=== PATIENT | female | born 1955 | race Caucasian/White ===

== ENCOUNTER → 2017-10-08 | Day surgery (SDC) | payer OTHER ==
[~2017-10-08] VITALS: Ht 172.7 cm; Wt 111.7 kg
[~2017-10-08] MED LIST: ACETAMINOPHEN 1000 MG/100 ML 100 ML IV ONE; BUPIVACAINE HCL PF 0.5% 30 ML VIAL ONE; BUPR150CR PO; CHLORHEXIDINE GLUCONATE 2 % 1 PACK (2 CLOTHS) TOPICAL PRN; CHOL1CAP34 PO; CYCL5TAB PO; DEXAMETHASONE SOD PHOS 4 MG/ML VIAL IV ONE; DO NOT ADM ANY ANTICOAGULANT DRUGS PRN; DULO1CAP2 PO; GLIP5TAB8 PO; GLYCOPYRROLATE 1 MG/5 ML SYRINGE IV PUSH ONE; IBUP1TAB7 PO; LACTATED RINGER'S 1000 ML INJ 500 ML IV SCH; LACTATED RINGER'S 1000 ML IV PRN; LEVO75TA3 PO; LIDOCAINE HCL 1% PF 5 ML SYRINGE OTHER ONE; LIDOCAINE HCL 2% 50 ML VIAL ONE; LISI30TA4 PO; LORA1TAB12 PO; METF500T PO; METOPROLOL TARTRATE 25 MG TAB PO PRN; MIDAZOLAM HCL 2 MG/2 ML VIAL ONE; NEOSTIGMINE 5 MG/5 ML SYRINGE IV PUSH ONE; OMEP20TA93 PO; ONDANSETRON HCL 4 MG/2 ML VIAL IV ONE; POVIDONE IODINE 5% (ANTISEPSIS KIT) 4 APPLICATIONS EACH NARE PRN; PRAV80TA2 PO; PROM25TA10 PO; PROPOFOL 200 MG/20 ML AMP IV ONE; ROCURONIUM INJ 50 MG/5 ML SYRINGE IV PUSH ONE; SODIUM CHLORID 0.9% 500 ML IV PRN; TYLETAB36 PO; ceFAZolin 2 GM PREMIX 50 ML IV SCH
--- NOTE | 2017-10-08 13:45 | PD.OP ---
Operative Report Preoperative Diagnosis: (1) Trigger finger, right ring finger (2) Trigger finger, right middle finger Postoperative Diagnosis: (1) Trigger finger, right ring finger (2) Trigger finger, right middle finger Procedure: trigger release right middle and right ring fingers Anesthesia: LMA Surgeon: Von Jerome [employer] Director(s): alejandra Operation and Findings: trigger fingers right middle and ring fingers Von Jerome MD Oct 08, 2017 13:45
[2017-10-08 14:58] VITALS: BP 126/67; PULSE 74; RESP 18; TEMP 98.2; O2SAT 97
--- NOTE | 2017-10-08 15:23 | MP ---
cc: Von Jerome MD DATE OF OPERATION: 10/08/2017 PREOPERATIVE DIAGNOSIS: Trigger finger right middle finger, trigger finger right ring finger. POSTOPERATIVE DIAGNOSIS: Trigger finger right middle finger, trigger finger right ring finger. PROCEDURE: Open trigger release right middle and right ring finger. SURGEON: Dr. Jerome ANESTHESIA: LMA ESTIMATED BLOOD LOSS: Minimal TOURNIQUET TIME: 21 minutes at 250 mmHg CONDITION: To post-anesthesia care unit stable INDICATION: The patient is a 61-year-old female who presented with complaints of pain and triggering involving the right middle and ring fingers of several weeks to months duration. She also complained of associated locking episodes. She had difficulty grabbing things with the right hand. She had multiple trigger fingers in the past for which she had trigger finger releases. She was consented for open right middle and ring finger trigger releases. The patient was explained risks and benefits of the procedure. OPERATION: The patient was brought to the operating room and the right upper extremity was thoroughly prepped and draped. The incision site was marked in an oblique fashion to the proximal aspect of the A-1 kirill region of the middle finger measuring about 2 cm. Another incision site was marked in a longitudinal fashion over the A-1 kirill region of the ring finger. After limb exsanguination the tourniquet was inflated to 250 mmHg. Attention was initially directed to the middle finger. Incision was made over the proposed incision site. The incision was deepened to soft tissue. Incision was carried out exposing the A-1 kirill. The A-1 kirill was found to be thickened. The A-1 kirill was released in a proximal to distal direction. Proximally the palmar kirill was released. There was evidence of hypertrophied around the flexor tendon which was debrided. The tendons were delivered out of the wound and finger was put through range of motion, no evidence of were noted. After achieving complete release the palmar skin was approximated using 5-0 Nylon in horizontal mattress interrupted fashion. Attention was then directed to the right ring finger. Incision was made in a longitudinal fashion. Soft tissue dissection was carried out exposing the A-1 kirill. There was evidence of thickening of the A-1 kirill. The A-1 kirill was released in proximal to distal fashion. Proximally the palmar kirill was released. The tendons were delivered out. The finger was put through a range of motion, no were noted. After achieving complete release the palmar skin approximated using 5-0 Nylon in horizontal mattress interrupted fashion. Xeroform, Bacitracin dressing was applied. Bulky hand dressing was applied which was held in place by Sof-Rol and bias hand wrap. The tourniquet was deflated. Total tourniquet time was 21 minutes. The patient had good distal circulation after release of the tourniquet. The patient was sent to the recovery room in stable condition. She will followup with me in 2-3 days time for dressing change. Von Jerome MD SE/SHANTELL/deborah , 01:48 PM , 02:42 PM
== END | disposition home or self-care (01) ==
LOC: HSDC 10:10
PROVIDERS: ATTEND Surgery Surgery of the Hand
DX: M65.341 Trigger finger, right ring finger (principal); M65.331 Trigger finger, right middle finger
CPT/HCPCS: 01810; 26055; J0131; J1100; J2250; J2405; J2710; J3010

== ENCOUNTER 2018-05-16 08:09 | Observation (INO) ==
--- NOTE | 2018-05-15 19:23 | MH ---
cc: Ángel Cullen Rohit K MD Mitchell-Samon, Levonne DATE OF ADMISSION: 05/16/2018 DATE OF ADMISSION 05/16/2018 ADMITTING DIAGNOSIS: Cervical spinal stenosis. HISTORY OF PRESENT ILLNESS: This is a 62-year-old female who presented to us for evaluation of neck pain that she has had since she was in her late 20s. She states she moved to [place] from [place] and established with a primary care physician. Her history had mentioned that she had neck pain and she was referred to pain management. Pain management started a workup and recommended that she see Neurosurgery and after her scans were done and called her with the results they wanted to do injections in her neck. The patient wanted to first know about her studies and her options and decided to follow through with neurosurgical evaluation. She states she has a history of carpal tunnel release and has had multiple trigger finger surgeries also. She states she has weakness in her hands and drops stuff a lot. She complains of paresthesias in the dorsal aspect of her hands intermittently. She has difficulty with fine motor coordination. She feels off balance with walking. She denies any radiculopathy in the upper extremities. PAST MEDICAL HISTORY: Significant for anxiety and depression, thrombocytosis, diabetes, hypertension, posttraumatic stress disorder, hypothyroidism, hypertension, hyperlipidemia, COPD. ALLERGIES: SHE STATES TRAMADOL CAUSES NAUSEA AND VOMITING, PREGABALIN CAUSES HER FEET TO SWELL AND BLURRED VISION, NSAIDS CAUSES NAUSEA AND VOMITING. CURRENT MEDICATIONS: 1. Bupropion SR 150 mg, 12-hour sustained release 1 tablet p.o. b.i.d. 2. Duloxetine 30 mg 1 tablet p.o. daily. 3. Vitamin D. 4. Glipizide 5 mg b.i.d. 5. Ibuprofen was placed on hold prior to surgical intervention. 6. Levothyroxine 75 mcg daily. 7. Lisinopril 40 mg. 8. Lorazepam t.i.d. 9. Metformin 500 mg b.i.d. 10. Multivitamin. 11. Omeprazole 20 mg delayed release. 12. Pravastatin 80 mg. 13. Promethazine 25 mg every 4 hours. 14. Tizanidine 4 mg. 15. Ventolin inhaler. 16. Vitamin D once a week. FAMILY HISTORY: Significant for atrial fibrillation, hyperlipidemia, neuropathy, malignant melanoma, stroke, fibromyalgia, schizophrenia, alcoholism, anxiety disorder, emphysema, colon cancer. SOCIAL HISTORY: She does not smoke and has not smoked. REVIEW OF SYSTEMS: CONSTITUTIONAL: She denies any fever or chills. EARS NOSE AND THROAT: No pharyngitis or exudates or bleeding from her nose. CARDIOVASCULAR: Denies any chest pain or palpitations. RESPIRATORY: No cough or shortness of breath. GASTROINTESTINAL: No nausea, vomiting, or abdominal pain. GENITOURINARY: No dysuria or hematuria. MUSCULOSKELETAL: Positive for neck pain. INTEGUMENTARY: No rashes or pruritus. NEUROLOGIC: No difficulty with speech or memory. ENDOCRINE: No polyuria or polydipsia. HEMATOLOGIC: No bruising or bleeding tendencies. PHYSICAL EXAMINATION: HEENT: Head is normocephalic, atraumatic. NECK: Supple. No carotid bruits on auscultation. LUNGS: Clear to auscultation bilaterally. HEART: Regular rate and rhythm. Normal S1, S2. ABDOMEN: Soft, nontender, positive bowel sounds. SKIN: No cyanosis or edema. MUSCULOSKELETAL: She has 5/5 strength in the upper and lower extremities. She ambulates without any assistive device. NEUROLOGIC: She is awake, alert, and oriented. Cranial nerves 2-12 are grossly intact. Her speech is fluent. Comprehension is good. Sensation is intact in the upper and lower extremities to light touch. DATA REVIEWED: MRI of the cervical spine from 11/22/2017 reveals a disk osteophyte complex with spinal stenosis, most prominent at the C4-C5 level with ventral cord compression and intrinsic myelomalacia. There is also a disk osteophyte complex involving the C5-C6 and C6-C7 levels, although no cord compression is noted. ASSESSMENT AND PLAN: A 62-year-old female with chronic history of neck pain along with numbness and paresthesias in her hands and all fingers. She also has complaints of weakness in the upper and lower extremities and unsteadiness in her gait. She has undergone physical therapy in the past and continues to perform cervical spine stretching exercises on a regular basis. She has had multiple surgeries in her hands including bilateral carpal tunnel release about 8 years ago without any improvement with her numbness and paresthesias. She also has a history of orthostatic hypotension and states that she has had extensive inpatient cardiac workup without any underlying etiology related to that. She tends to fall easily from an unsteady gait. MRI reveals disk osteophyte complex with spinal stenosis, most prominent at the C4-C5 level with ventral cord compression and intrinsic myelomalacia. There is also a disk osteophyte complex involving the C5-C6 and C6-C7 levels, although no cord compression is noted. PLAN: We have discussed treatment options with the patient, which include continued conservative measures with physical therapy and pain management. We also discussed the option of an anterior C4-C5 microdiscectomy with fusion given the spinal stenosis and myelopathy. We have discussed the procedure in detail as well as the risks, benefits, alternatives, and recovery time. We have discussed the risks involved with surgery include, but not limited to bleeding, infection, muscle weakness, voice hoarseness, difficulty swallowing, heart attack, stroke, blood clots, nonfusion, scar tissue formation among others. The patient is wanting to proceed with surgical intervention, understanding the procedure as well as the risks involved and she was therefore scheduled accordingly. RENO Ontiveros MD SHIREEN/ct , 06:23 PM , 06:36 PM
[2018-05-16] MEDS ORDERED: Bupivacaine/Epinephrine 0.5% Inj 50 ML Vial ONE (08:10)
[2018-05-16] MEDS ORDERED: Thrombin Topical Soln 5,000 UNIT Vial TOPICAL ONE (08:11)
[2018-05-16] MEDS ORDERED: Gelatin Size 100 Topical Foam ONE (08:11)
[2018-05-16] MEDS ORDERED: Sodium Chlor 0.9% Inj 250 ML ONE (08:58)
[2018-05-16] MEDS ORDERED: Vancomycin Inj 1,000 MG in Sodium Chlor 0.9% Inj 250 ML IV.SIG ONE (09:00)
[2018-05-16] MEDS ORDERED: Sodium Chloride 0.9% 2 ML Flush PRN IV.FLUSH (09:00)
[2018-05-16] MEDS ORDERED: Sod Chloride 0.9% Inj 1,000 ML IV.SIG SCH (09:00)
[2018-05-16] MEDS ORDERED: Sodium Chlor 0.9% Inj 500 ML IV.CONT ONE (09:15)
[2018-05-16] MEDS ORDERED: Metoprolol Tartrate 25 MG Tablet PO ONE (09:15)
[2018-05-16] MEDS ORDERED: Chlorhexidine Gluconate 2% 1 Pack (2 Cloths) TOPICAL ONE (09:15)
[2018-05-16] MEDS ORDERED: Propofol Inj 500 MG/50 ML Vial ONE (11:02)
[2018-05-16] MEDS ORDERED: Ketamine Inj 50 MG/5 ML Syringe IV.PUSH ONE (11:03)
[2018-05-16] MEDS ORDERED: Succinylcholine Inj 100 MG/5 ML Syringe IV.PUSH ONE (11:24)
[2018-05-16] MEDS ORDERED: Lidocaine PF 1% Inj 5 ML Syringe OTHER ONE (11:24)
[2018-05-16] MEDS ORDERED: Phenylephrine/NS 1000 MCG/10ML Syringe IV.PUSH ONE (11:24)
[2018-05-16] MEDS ORDERED: LORazepam 1 MG Tablet PO PRN (13:35)
[2018-05-16] MEDS ORDERED: Bisacodyl 10 MG Supp RECTAL PRN (13:36)
[2018-05-16] MEDS ORDERED: Menthol 5.8 MG Lozenge BUCCAL PRN (13:36)
[2018-05-16] MEDS ORDERED: Zolpidem Tartrate 5 MG Tablet PO PRN (13:36)
[2018-05-16] MEDS ORDERED: Aluminum/Magnesium/Simethacone Susp 30 ML UDC PO PRN (13:36)
[2018-05-16] MEDS ORDERED: Acetaminophen 325 MG Tablet PO PRN (13:36)
[2018-05-16] MEDS ORDERED: Dextrose 50% in Water 50 ML Vial IV.PUSH PRN (13:40)
--- NOTE | 2018-05-16 13:46 | P.OP ---
- Preoperative Diagnosis (1) Cervical spondylosis with myelopathy (2) Degenerative cervical spinal stenosis Date of procedure: 05/16/18 Procedure: Anterior cervical C4-5 microdiscectomy with interbody fusion; anterior C4-5 cervical plate placement; C4-5 interbody cage placement; microsurgical technique Anesthesia: PHYLLIS Surgeon: Frankie Rubalcava MD [employer] Operator: Kylah Mcdaniel Estimated blood loss (mL): 30 Operation and Findings: Following administration of general endotracheal anesthesia with the neck maintained in neutral position in a Bowie collar, the patient received a gram of vancomycin and Decadron 10 mg intravenously. Sequential compression devices were placed in supine position on a Kenney table and all pressure points adequately padded. The head secured in a donut and anterior cervical region then shaved and prepped with Chloraprep and sterilely draped with Ioban along with the usual sterile draping. A transverse skin incision on the left side of the neck was then made after infiltrating the skin with 0.5% Marcaine with epinephrine solution extending down through the platysma. At the anterior border of the sternocleidomastoid further dissection was undertaken developing a plane between the carotid sheath laterally and the trachea esophagus medially. The prevertebral fascia was exposed and dissected out. The medial attachments of the longus colli muscles were detached and a self-retaining retractor used for exposure. The C4-5 disc space was localized with a marking the disc space and using lateral fluoroscopy. Westport distraction screws 14 mm length were placed one in the C4 and one in the C5 body interbody distraction and exposure. There was significant disc degeneration with disc height collapse , kyphosis and anterior osteophytes noted at the C4-5 level and the osteophytes were resected with a Leksell and annulus incised with a 15 blade and further dissection undertaken using microtechnique with microscope magnification. Diskectomy was undertaken with pituitaries and the endplates were also decorticated with curettes and drill bit. And more posteriorly there was disk osteophyte complex compressing the thecal sac along with a significant uncovertebral joint hypertrophy with foraminal stenosis which was decompressed along with removal of the posterior longitudinal ligaments at both levels. The foramen was decompressed bilaterally using a Kerrison's and palpation with a nerve hook, the exiting nerve roots were felt to be free. The area was then copiously irrigated. I then placed a Peek cage packed with local autograft bone at the C4-5 interspace under fluoroscopy guidance. Westport distraction pins were removed and the holes plugged with Gelfoam for hemostasis. In order to facilitate the fusion and provide stabilization, a Precision spine cervical Uniplate was then placed with 14 mm variable angle screw in the C4 body and 14 mm fixed angle screw in the C5 body. The plate screw locking mechanism was then engaged. AP and lateral fluoroscopy confirmed good placement of the construct and the retractor was then removed. Muscular bleeding points were cauterized with bipolar cautery and Gelfoam was then also used for hemostasis which was removed. The platysma was then approximated using 3-0 Vicryl interrupted stitches and 3-0 Vicryl subcuticular stitch also placed in an interrupted fashion, and final skin closure was with Mastisol and Steri-Strips. Sterile dressing was then applied. The patient was then extubated and taken to the recovery room. There are no intraoperative complications and all sponge and needle counts were correct at the end of procedure. Estimated blood loss was about 30 cc. The patient did undergo intraoperative neurologic monitoring which remained stable throughout the surgery.
[2018-05-16] MEDS ORDERED: fentaNYL Citrate Inj 100 MCG/2 ML Ampul ONE (14:19)
[2018-05-16] MEDS: Sodium Chloride 0.9% 2 ML Flush BID IV.FLUSH SCH ×2 (15:06→21:41)
--- NOTE | 2018-05-16 15:55 | XR ---
EXAM DATE: 05/16/2018 12:00 AM EDT AGE/SEX: 62 years / Female INDICATIONS: Post-op C4-C5 anterior cervical fusion. CLINICAL DATA: This is the patient's initial encounter. Patient reports that signs and symptoms have been present for 1 day and indicates a pain score of Nonresponsive. MEDICAL/SURGICAL HISTORY: Non-responsive. Non-responsive. COMPARISON: No prior exams available for comparison. FINDINGS: AP and lateral intraprocedural fluoroscopic images of the cervical spine demonstrate anterior plate a nd screw as well as intradiscal fixation at C4-5. Hardware appears intact and grossly well-positioned . Vertebral body heights that are visualized are intact. Sagittal alignment is maintained. CONCLUSION: 1. C4-5 anterior fixation, as above. Electronically signed by: Randall Melgoza MD 05/16/2018 3:54 PM EDT
[2018-05-16] MEDS: Insulin NovoLIN Regular Correctional Sugar Inj SQ SCH ×2 (16:09→20:28)
[2018-05-16] MEDS: Morphine Inj 4 MG/ML Vial IV.PUSH PRN ×2 (16:09→20:21)
[2018-05-16] MEDS: Senna/Docusate Sodium 8.6/50 MG Tablet PO SCH (20:00)
[2018-05-17] MEDS ORDERED: Levothyroxine 75 MCG Tablet PO SCH (06:00)
[2018-05-17] MEDS: Morphine Inj 4 MG/ML Vial IV.PUSH PRN ×2 (06:09→10:22)
[2018-05-17] MEDS: Senna/Docusate Sodium 8.6/50 MG Tablet PO SCH (08:42)
[2018-05-17] MEDS: Sodium Chloride 0.9% 2 ML Flush BID IV.FLUSH SCH (08:42)
[2018-05-17] MEDS: Insulin NovoLIN Regular Correctional Sugar Inj SQ SCH (08:56)
[2018-05-17] MEDS ORDERED: Pantoprazole Sodium 20 MG DR Tablet PO SCH (09:00)
[2018-05-17] MEDS ORDERED: Lisinopril 20 MG Tablet PO SCH (09:00)
[2018-05-17] MEDS ORDERED: Multivitamin/Minerals Therapeutic Tablet PO SCH (09:00)
--- NOTE | 2018-05-17 09:57 | P.PNNS ---
Subjective Interval history: Pt s/p Anterior cervical C4-5 microdiscectomy with interbody fusion; anterior C4 -5 cervical plate placement; C4-5 interbody cage placement; microsurgical technique on 05/16/18. Complains of neck pain. States she does better on Percocet. A prescription was sent to her pharmacy before surgery but she didn' t pick it up yet. She denies any radiculopathy in UEs. No paresthesias in UEs. Pt getting up independently and walking to the bathroom. She is okay with being discharged today. Physical Exam Vital signs: Vital Signs 05/16/18 13:55 05/16/18 14:00 05/16/18 14:15 Temperature 98.0 F Pulse Rate 86 87 85 Respiratory Rate 10 L 12 12 Blood Pressure 137/65 135/65 123/60 Pulse Oximetry 93 L 95 96 05/16/18 14:30 05/16/18 14:45 05/16/18 15:21 Temperature 98.0 F Pulse Rate 82 83 Respiratory Rate 14 14 14 Blood Pressure 136/64 133/61 Pulse Oximetry 96 97 05/16/18 15:37 05/16/18 15:41 05/16/18 16:11 Temperature 98.4 F Pulse Rate 83 Respiratory Rate 17 18 18 Blood Pressure 131/64 Pulse Oximetry 93 L 05/16/18 20:00 05/16/18 23:28 05/17/18 01:20 Temperature 98.4 F 97.7 F Pulse Rate 84 75 Respiratory Rate 16 18 17 Blood Pressure 129/59 L 119/56 L Pulse Oximetry 92 L 95 05/17/18 04:00 05/17/18 08:00 Temperature 97.9 F 97.9 F Pulse Rate 74 76 Respiratory Rate 17 16 Blood Pressure 130/62 154/74 H Pulse Oximetry 97 93 L Intake & Output 05/16/18 05/17/18 05/17/18 18:59 06:59 18:59 Intake Total 3640 / 3640 100 / 100 100 / 100 Output Total 30 / 30 Balance 3610 / 3610 100 / 100 100 / 100 Weight 109.8 kg 109.8 kg Intake: IV 1650 / 1650 100 / 100 100 / 100 NS Inj 250 ML @ 0 mls/hr .ROUTE 250 / 250 .[facility] Rx#:[id number] LR 1000 mL Inj 1,000 ML @ 30 500 / 500 mls/hr IV.CONT .Q24H ONE Rx#: [id number] NS + KCl 20 mEq Inj 1,000 ML @ 800 / 800 100 mls/hr IV.CONT .Q10H [facility] Rx #:[id number] Ancef Inj 1,000 MG In NS Inj 100 / 100 100 / 100 100 / 100 100 ML @ 200 mls/hr IV.SIG Q8H [facility] Rx#:[id number] Oral 240 / 240 Anesthesia Amount 1750 / 1750 Output: Urine 0 / 0 Estimated Blood Loss 30 / 30 Other: # Voids 3 Date of Last Bowel Movement 05/15/18 05/15/18 Weight On Admission 109.8 kg - Constitutional no acute distress, obese, cooperative - Routine HEENT Exam Head: Present: normocephalic, atraumatic Eye: Present: PERRL. Absent: conjunctival icterus ENT: Present: oropharynx clear - Routine Neck Exam Comments: Anterior cervical incision clean and dry without signs of infection. - Routine Respiratory Exam Present: CTA bilaterally. Absent: respiratory distress, rhonchi, wheezes - Routine Cardiovascular Exam Present: RRR, S1, S2. Absent: murmur - Routine Abdominal Exam Present: soft, normoactive bowel sounds. Absent: distended - Routine Skin Exam Absent: cyanosis, erythema Comments: Incision clean and dry without signs of infection. New bandage placed. - Routine Neurological Exam Present: alert. Absent: sensory deficit, motor deficit, altered mental status, moving all extremities - Routine Psychiatric Exam Present: normal affect, cooperative. Absent: anxious, agitated Assessment and Plan - Assessment (1) Cervical spondylosis with myelopathy Code(s): M47.12 - Other spondylosis with myelopathy, cervical region Status: Chronic (2) Degenerative cervical spinal stenosis Code(s): M48.02 - Spinal stenosis, cervical region Status: Chronic - Plan A: 62 y/o FM s/p Anterior cervical C4-5 microdiscectomy with interbody fusion; anterior C4-5 cervical plate placement; C4-5 interbody cage placement; microsurgical technique on 05/16/18. She is doing well and ambulating to bathroom independently. P: D/C home Keep incision clean and dry and discussed with her. Follow up as directed on preop instruction sheet.
== END 2018-05-17 12:38 | disposition home or self-care (01) ==
LOC: HSDI 08:09 → HSDC 08:09 → N06 15:05
PROVIDERS: ADMIT Neurological Surgery; ATTEND Neurological Surgery